=== PATIENT | male | born 1940 | race Caucasian/White ===

== ENCOUNTER 2020-05-28 14:48 | Outpatient (CLI) | payer MEDICARE, SELFPAY | END 2020-05-28 14:49 | disposition home or self-care (01) | PROVIDERS: PCP Family Medicine; Visit Provider Specialist | DX: L08.89 Other specified local infections of the skin and subcutaneous tissue (principal); L30.9 Dermatitis, unspecified | CPT/HCPCS: 88305; 88342 ==

== ENCOUNTER 2020-12-06 13:58 | Outpatient (CLI) | payer MEDICARE, SELFPAY | END 2020-12-06 13:59 | disposition home or self-care (01) | LOC: CHSLAB 14:04 | PROVIDERS: Visit Provider Specialist | DX: D22.5 Melanocytic nevi of trunk (principal) | CPT/HCPCS: 88305; 88342 ==

== ENCOUNTER 2020-12-15 12:19 | Inpatient (IN) | payer MEDICARE, SELFPAY ==
[2020-12-15] VITALS (14 sets, daily range): BP systolic 85–151; BP diastolic 56–89; PULSE 56–118; RESP 14–20; TEMP 36.4–36.8; O2SAT 92–100; BMI 30.2
--- NOTE | 2020-12-15 12:28 | ECG_ITS ---
Measurements Intervals [place] Rate: 114 P: 55 CA: 124 QRS: 34 QRSD: 100 T: -12 QT: 321 QTc: 443 Interpretive Statements SINUS TACHYCARDIA POSSIBLE LEFT ATRIAL ENLARGEMENT EARLY PRECORDIAL R/S TRANSITION INFERIOR ST ELEVATION MYOCARDIAL INFARCT- ACUTE BASELINE WANDER- I, II ABNORMAL ECG Electronically Signed On 12-15-2020 14:18:43 COMMAND AND CONTROL OFFICER by Lavell Bush D.O.
[2020-12-15] MEDS: ASPIRIN 81 MG CHEWABLE TABLET 324 MG PO (12:38)
[2020-12-15 12:46] LABS: Basophils Percent Auto 0.3 % (0.2-1.2); Hematocrit 43.8 % (42.0-52.0); Hemoglobin 14.8 g/dL (14.0-18.0); Immature Granulocyte Absolute 0.03 K/mm3 (0.00-0.031); Immature Granulocyte Percent A 0.2 % (0-0.5); Lymphocytes Absolute Auto 0.94 K/mm3 (0.9-3.2); Lymphocytes Percent Auto 7.8 % (18.3-44.2); Mean Corpuscular HGB Conc 33.8 g/dl (32-36); Mean Corpuscular Hemoglobin 31.7 pg (26-34); Mean Corpuscular Volume 93.8 fl (80-100); Mean Platelet Volume 9.6 fl (7.4-10.4); Monocytes Absolute Auto 0.7 K/mm3 (0.1-0.6); Monocytes Percent Auto 5.7 % (2.6-8.5); Neutrophils Absolute Auto 10.4 K/mm3 (1.3-6.7); Platelet Count Result 252 k/mm3 (150-375); Red Blood Count 4.67 M/mm3 (4.6-6.20); White Blood Count 12.1 K/mm3 (4.5-10.0)
--- NOTE | 2020-12-15 12:50 | PC.NURSE ---
MANAGER MANUFACTURING IN ROOM PAIN RATED AT 4
[2020-12-15 12:56] LABS: INR 0.9; Prothrombin Time 12.5 Seconds (11.1-14.7)
[2020-12-15 12:57] LABS: Partial Thromboplastin Time 27.3 SECONDS (22.3-36.8)
--- NOTE | 2020-12-15 12:59 | ED.CHESTPAIN ---
HPI - Chest Pain General Chief Complaint: Chest Pain Stated Complaint: chest pain Time Seen by Provider: 12/15/20 12:27 Source: patient Mode of arrival: ambulatory Limitations: no limitations History of Present Illness HPI narrative: Patient is a 80 year old male who presents for evaluation of midsternal chest pain. He developed pain on Wednesday. He states he thought his pain was due to indigestion and gas. He tooks tums at that time and his pain resolved. He continued to have this pain intermittently but he states it would resolve after gas relieved or he took tums. He states he developed pain again 1 am this morning, but he has been unable to get his pain to resolve. He has associated bilateral arm pain and nausea. He denies sob, or diaphoresis. He rates his pain 4/10 at this time. He denies history of heart disease or exertional chest pain or shortness of breath. complaint: chest pain Onset (ago): day(s) Timing of current episode: episodic Onset: during rest Quality: dull Relieving factors: antacids Treatment prior to arrival: none Related Data Home Medications Medication Instructions Recorded Confirmed aspirin 81 mg tablet,delayed 81 mg PO DAILY 09/02/20 12/15/20 release clotrimazole [Clotrimazole 1 applic TOPICAL BID 12/15/20 12/15/20 Anti-Fungal] mupirocin 1 applic TOPICAL BID 12/15/20 12/15/20 sildenafil 100 mg PO PRN 12/15/20 12/15/20 Allergies Allergy/AdvReac Type Severity Reaction Status Date / Time Penicillins Allergy Unknown Unknown Verified 12/15/20 12:34 Review of Systems Review of Systems: All systems reviewed & are unremarkable except as noted in HPI and below Constitutional: Constitutional: Denies chills and Denies fever(s) Cardiovascular: Cardiovascular: Reports chest pain and Reports radiating jaw, neck or arm pain Respiratory: Respiratory: Denies cough and Denies dyspnea Gastrointestinal: Gastrointestinal: Denies abdominal pain and Reports nausea PMFSH Past Medical History Medical History Abnormal fasting glucose BMI 33.0-33.9,adult Candidiasis Idiopathic chronic gout (~11/08/13) Male erectile dysfunction, unspecified Mixed hyperlipidemia Nocturia Renal stone Seasonal allergic rhinitis White coat syndrome without hypertension Family History Family History Grandparent Diabetes mellitus, Onset Age: 65 Mother Cerebrovascular accident, Onset Age: 80 Father Family history of congestive heart failure, Onset Age: 79 Social History Social History Smoking status: Former smoker Alcohol intake: former Substance use: never Substance use type: does not use Gender identity (if verbalized by the patient): Male Spiritual care concerns: No Exam Const: General: no acute distress and alert Orientation/consciousness: patient oriented x3 Eyes: EOM: EOMs intact bilaterally Chest: Chest palpation & inspection: normal inspection of the chest Resp: Effort & Inspection: normal respiratory effort and no retractions Auscultation: clear to auscultation bilaterally Cardio: Rate: tachycardic Rhythm: regular rhythm Heart sounds: no murmurs GI: GI Palp: Yes Soft to palpation, No Tenderness to palpation present (GI) and No Guarding due to palpation present (GI) Auscultation: normal bowel sounds Skin: General skin exam: normal color Rashes: no rashes Neuro: General: patient oriented x3 and moves all extremities Extrem: General: edema (trace bilateral low leg edema, pitting) Psych: Mental Status: mental status grossly normal Affect: normal affect Course Reevaluation(s) Reevaluation #1: 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 Tapia came to ER to see patient for stemi. Patient was given aspirin 324 mg PO, metoprol and heparin. HR has improved to 80 with bBP 135/82 Date:
[2020-12-15 13:04] LABS: Cholesterol 182 mg/dL (0-200); HDL Direct 65 mg/dL; Triglycerides 82 mg/dL (<150)
[2020-12-15 13:09] LABS: Anion Gap 8 mmol/L (8-16); Blood Urea Nitrogen 12 mg/dL (9-20); Calcium 9.8 mg/dL (8.4-10.2); Carbon Dioxide 30 mmol/L (22-30); Chloride 96 mmol/L (98-107); Estimated CRCL calculation 92 ml/min; Estimated Glomerular Filt Rate > 60; Glucose 126 mg/dL (75-110); Potassium 4.3 mmol/L (3.4-5.0); Sodium 134 mmol/L (137-145)
[2020-12-15 13:15] LABS: LDL Cholesterol Direct 96 mg/dL
--- NOTE | 2020-12-15 13:15 | PC.NURSE ---
Patient noted to still be having chest pain. Verbal order received from Dr. Pickard for zofran 4 mg ivp and morphine 4 mg ivp at this time.
[2020-12-15] MEDS: MORPHINE SULFATE (*CRX) 4 MG/ML INJ (13:19)
[2020-12-15] MEDS: ONDANSETRON INJ 4 MG/2 ML VIAL (13:19)
--- NOTE | 2020-12-15 13:31 | PM.IMHP ---
H&P: HPI History of Present Illness Date/Time: 12/15/20 13:31 Chief Complaint: chest pain Narrative: Rudy Salas is a 80 year old male presented with recurrent episodes of epigastric and chest pain discomfort, moderate in severity, started on Wednesday, on and Off, last night was was worse and persistent all night and radiates to arms, and couuldn't sleep. So called PCP who recommended to visit ER. Review of Systems Review of Systems: All systems reviewed & are unremarkable except as noted in HPI and below PMFSH Past Medical History Medical History (Updated 12/15/20 @ 13:11 by Dunia Pickard MD) Abnormal fasting glucose BMI 33.0-33.9,adult Candidiasis Idiopathic chronic gout (~11/08/13) Male erectile dysfunction, unspecified Mixed hyperlipidemia Nocturia Renal stone Seasonal allergic rhinitis White coat syndrome without hypertension Family History Family History (Updated 08/01/19 @ 09:41 by DOCTOR UNKNOWN) Grandparent Diabetes mellitus, Onset Age: 65 Mother Cerebrovascular accident, Onset Age: 80 Father Family history of congestive heart failure, Onset Age: 79 Social History Social History (Updated 11/19/20 @ 15:01 by Scarlett Rockwell MA) Smoking status: Former smoker Alcohol intake: never Substance use: never Substance use type: does not use Gender identity (if verbalized by the patient): Male Meds Home Medications and Allergies Home Medications Medication Instructions Recorded Confirmed Type aspirin 81 mg tablet,delayed 81 mg PO DAILY 09/02/20 12/15/20 History release Allergies Allergy/AdvReac Type Severity Reaction Status Date / Time Penicillins Allergy Unknown Unknown Verified 12/15/20 12:34 Vital Signs Vital Signs - 24 hr 12/15/20 12:29 12/15/20 12:40 12/15/20 12:47 Temperature 36.7 C Pulse Rate 118 H 111 H 90 Respiratory Rate 20 18 20 Blood Pressure 151/89 H 139/81 140/83 Pulse Oximetry 100 98 100 12/15/20 12:51 12/15/20 13:00 Temperature Pulse Rate 91 83 Respiratory Rate 17 19 Blood Pressure 117/78 138/82 Pulse Oximetry 98 97 Exam Const: General: comfortable and no acute distress Other: Able to lie flat HENMT: General nose exam: Normal nares present and no epistaxis Mouth: Yes moist mucous membranes Eyes: Sclera: sclerae normal Pupils: Equal, round and reactive pupils present Neck: Neck: supple and no JVD Carotids: no bruits Resp: Auscultation: clear to auscultation bilaterally and lung sounds not diminished Other: No chest wall tenderness Cardio: Rate: regular rate Rhythm: regular rhythm Heart sounds: no gallops, no murmurs and no rubs GI: GI Palp: Yes Soft to palpation and No Tenderness to palpation present (GI) Auscultation: normal bowel sounds Skin: General skin exam: normal color, rashes and/or lesions noted and no erythema Other: Warm Neuro: Cranial nerves: Yes Equal, round and reactive pupils present Speech: normal speech Other: No obvious focal deficit or facial asymmetry Extrem: General: no edema Other: Normal capillary refills Intact distal pulses. H&P: Results Labs Labs: Short CBC 12/15/20 Range/Units 12:37 WBC 12.1 H (4.5-10.0) K/mm3 Hgb 14.8 (14.0-18.0) g/dL Hct 43.8 (42.0-52.0) % Plt Count 252 (150-375) k/mm3 BMP 12/15/20 12:37 Sodium 134 L Potassium 4.3 Chloride 96 L Carbon Dioxide 30 BUN 12 Creatinine 0.60 L Glucose 126 H Calcium 9.8 Cardiac Enzymes 12/15/20 Range/Units 12:37 Troponin I 4.670 H* (0.000-0.034) ng/mL ECG Attestation: I personally reviewed and interpreted this ECG as follows: (SR and Inf wall OR) Assessment and Plan Additional Plan INF wall STEMI late pattern but persistent chest pain, liekly started at 1 AM. Plan heparin, ASA, Ticagrlor and primary PCI
--- NOTE | 2020-12-15 14:15 | WPDCARDPROC ---
Cardiac Cath Procedure Note Date of procedure:: 12/15/20 Performing physician:: Tony Tapia MD Assessment and Plan Additional Plan INDICATION: 1. STEMI HISTORY Patient presented with acute sever chest pain, EKG showed INf wall STEMI PROCEDURES 1. Coronary angiogram 2. LHC 3. PCI to RCA acute total occlusion, culpruit lesion of STEMI ACCESS SITE Rt radial artery SEDATION: Moderate sedation started at 13:42 and ended at 14:09, for 17 min using versed 1 mg and fentanyl 50 mcg. Patient was monitored during procedure by me and nurse and was stable through out procedure and at end. - PROCEDURE DETAILS Consent obtained and time out done. Access site prepped and draped in sterile fashion. Moderate sedation given with versed and fentanyl and tolerated well, see nurses note for doses Access obtained with modified Seldinger technique with no difficulty. Coronary angiogram was recorded using TIG catheter in different angels LHC was done with TIG 4 catheter HEMODYNAMIC FINDINGS Aorta: 110/80 LV: 110/17 ANGIOGRAPHIC FINDINGS 1. Left main: normal, free of obstructive disease, gives LAD and LCX 2. LAD: LAD, LAD gives large diagonal and and has mid LAD 50% stenosis. 3. LCX: Lareg vessel that gives one large OM2, LCX and OM2 are free of obstructive disease. 4. RCA: Dominant vessel gives rPDA and rPL. Distal RCA has 100% occlusion distally ay bifurcation with thrombus TIMI0 (culprit for STEMI) PCI DETAILS Pre intervention Lesion: acute total occlusion of RCA culprit lesion of STEMI, class B, MARIELLA 0 Guide catheter: JR4 and GuideLiner used for support Anticoagulation: Heparin to target ACT > 250 sec Antiplatelet therapy: ASA givenin ER Guide wire: Samurai used to cross to distal vessel Balloon dilation was done with Emerge 2.5 * 12 balloon at 10 MICHELLE Stent 2.5 * 9 mm Orsero deployed at lesion extending into proximal PDA at 12 MICHELLE, post stent balloon dilation was done with Quantum NC 3.0 * 8 NC balloon at 14 MICHELLE Post intervention: residual stenosis 0% and MARIELLA 3 flow established COMPLICATION: None Estimated blood loss: 30 ml patient tolerated procedure well, asymptomatic at end of procedure, awake, intact pulses and following commands CONCLUSION Acute total occlusion of distal RCA Culprit lesion of STEMI S/P Primary PCI with one TRACEY Orserio 2.5 *9 mm from distal RCA into proximal PDA RECOMMENDATION DAPT for at least one year
--- NOTE | 2020-12-15 14:25 | ECG_ITS ---
Measurements Intervals [place] Rate: 81 P: 67 IN: 145 QRS: -12 QRSD: 104 T: -36 QT: 392 QTc: 456 Interpretive Statements SINUS RHYTHM EARLY PRECORDIAL R/S TRANSITION INFERIOR INFARCT, PROBABLY RECENT BASELINE ARTIFACT- I, II, III, AVR, AVL,A VF, V1, V3-V6 ABNORMAL ECG Electronically Signed On 12-15-2020 15:54:01 TREE WORKER by Lavell Bush D.O.
--- NOTE | 2020-12-15 15:04 | WPDCNINT ---
Assessment and Plan Assessment and plan (1) ST elevation (STEMI) myocardial infarction: Qualifiers: Involved coronary artery: unspecified coronary artery Qualified Code(s): I21.3 - ST elevation (STEMI) myocardial infarction of unspecified site Code(s): I21.3 - ST elevation (STEMI) myocardial infarction of unspecified site Status: Acute Assessment and Plan: On presentation he had ST elevation in inferior leads and troponin was 4.6 He is now Status post PCI with stent placement to RCA. 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 Pain started redness day for the 1st time after eating dinner, it was 8/10 severe, sharp, radiated to both arms, associated with shortness of breath. He thought it was heartburn and he took medications which relieved the pain after a hour. Since then patient has had multiple episodes of recurrent pain at different times of the day which were intermittent and went away with treatment with antacid or spontaneously. Last night patient again had similar episode while he was walking. Today pain started again and not go way hence he reported to ER. In the ED he was found to be having elevated troponin and ST elevation of his inferior leads. Patient was taken to cardiac cath lab technologist for STEMI and underwent angiogram and PCI to RCA which showed acute total occlusion. Patient now admitted to ICU and states that his pain is totally resolved and he does not have any complaints. His only complaint at this time is in his right arm from keeping it still for the duration of procedure. He denies any other complaint and review of system for other systems was negative. He denies any contact with anyone with COVID-19, he himself was never tested nor had any symptoms suggestive of COVID-19. Patient also denies receiving COVID-19 vaccine at this time Review of Systems Review of Systems: All systems reviewed & are unremarkable except as noted in HPI and below (HPI) [facility] Past Medical History Medical History Abnormal fasting glucose BMI 33.0-33.9,adult Candidiasis Idiopathic chronic gout (~11/08/13) Male erectile dysfunction, unspecified Mixed hyperlipidemia Nocturia Renal stone Seasonal allergic rhinitis White coat syndrome without hypertension Family History Family History Grandparent Diabetes mellitus, Onset Age: 65 Mother Cerebrovascular accident, Onset Age: 80 Father Family history of congestive heart failure, Onset Age: 79 Social History Social History Smoking status: Former smoker Alcohol intake: never Substance use: never Substance use type: does not use Gender identity (if verbalized by the patient): Male Meds Home Medications and Allergies Home Medications Medication Instructions Recorded Confirmed Type aspirin 81 mg tablet,delayed 81 mg PO DAILY 09/02/20 12/15/20 History release Allergies Allergy/AdvReac Type Severity Reaction Status Date / Time Penicillins Allergy Unknown Unknown Verified 12/15/20 12:34 Vital Signs Vital Signs - 24 hr 12/15/20 12:29 12/15/20 12:40 12/15/20 12:47 Temperature 36.7 C Pulse Rate 118 H 111 H 90 Respiratory Rate 20 18 20 Blood Pressure 151/89 H 139/81 140/83 Pulse Oximetry 100 98 100 12/15/20 12:51 12/15/20 13:00 Temperature Pulse Rate 91 83 Respiratory Rate 17 19 Blood Pressure 117/78 138/82 Pulse Oximetry 98 97 Exam Narrative: Exam Narra
--- NOTE | 2020-12-15 15:43 | PC.NURSE ---
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 Pt arrives A&Ox4 on RA, no bleeding to TR band. Will monitor.
[2020-12-15] MEDS: SODIUM CHLORIDE 0.9% IV 1,000 ML 125 ML IV CONT (19:07)
[2020-12-15] MEDS: METOPROLOL TARTRATE 12.5 MG TABLET PO (20:37)
[2020-12-15 20:57] LABS: Troponin I > 80.000 ng/mL (0.000-0.034)
[2020-12-16] VITALS (17 sets, daily range): BP systolic 93–156; BP diastolic 53–84; PULSE 58–144; RESP 16–23; TEMP 36.3–36.8; O2SAT 92–100
--- NOTE | 2020-12-16 | ECHO_ITS ---
Patient Info Name: Rudy Salas Age: 80 years : 1940 Gender: Male Ht: 68 in Wt: 196 lbs BSA: 2.09 m2 HR: 88 bpm BP: 111 / 53 mmHg Heart Rhythm: Sinus Rhythm Technical Quality: Good Exam Date: 12/16/2020 9:58 AM Exam Location: [facility] Patient Status: Inpatient Admit Date: 12/15/2020 Staff Ordering Physician: Tony Tapia MD Process Stripper: Edil Jackson RDCS Attending Provider: Tony Tapia MD Exam Type: CA echo dop color flow w con Study Info Indications I21.11 - ST elevation (STEMI) myocardial infarction involving right coronary artery Complete two-dimensional, color flow and Doppler transthoracic echocardiogram is performed with contrast to opacify the left ventricle and to improve the deliniation of the left ventricle endocardial borders. Contrast/Agitated Saline Contrast/Ag. Saline: Definity Amount: 2.00 ml Administered By: Jean Pierre Newman RN Existing IV Access: Yes History/Risk Factors STEMI w/ stent to RCA. Summary 1. Left ventricular chamber dimension is normal. 2. Left ventricular systolic function is normal, estimated at 50-55%. 3. Contrast injected to improve visualization. 4. The inferior segment is severely hypodynamic but not akinetic. 5. There is mild aortic valve sclerosis. Left Ventricle Left ventricular chamber dimension is normal. Left ventricular systolic function is normal, estimated at 50-55%. The left ventricular diastolic function is grade I diastolic dysfunction. Contrast injected to improve visualization. The inferior segment is severely hypodynamic but not akinetic. Right Ventricle Right ventricular chamber dimension is normal. Left Atria Left atrial chamber dimension is normal. Right Atria Right atrial chamber dimension is normal. Aortic Valve The aortic valve is trileaflet. There is mild aortic valve sclerosis. Pulmonic Valve The pulmonic valve is not well visualized. Mitral Valve The mitral valve has normal leaflets. Tricuspid Valve The tricuspid valve leaflets are normal. Pericardium/Pleural The pericardium appears normal. Aorta The aortic root size at the sinus of Valsalva is normal. Left Ventricular Outflow Tract Name Value Normal LVOT 2D LVOT Diameter 1.87 cm LVOT Doppler LVOT Peak Gradient 5 mmHg LVOT Mean Gradient 3 mmHg LVOT VTI 22.73 cm LVOT VTI/AV VTI Ratio 0.75 LVOT Stroke Volume 62.09 ml LVOT CO 4.93 l/min LVOT CI 2.36 L/min/m2 Mitral Valve Name Value Normal MV Doppler MV Decel [place] 242.87 cm/s2 MV PHT 0 s
[2020-12-16 05:26] LABS: Hematocrit 41.3 % (42.0-52.0); Mean Corpuscular HGB Conc 33.9 g/dl (32-36); Mean Corpuscular Hemoglobin 32.3 pg (26-34); Mean Corpuscular Volume 95.4 fl (80-100); Mean Platelet Volume 9.7 fl (7.4-10.4); Platelet Count Result 212 k/mm3 (150-375); Red Blood Count 4.33 M/mm3 (4.6-6.20); Red Cell Distribution Width 13.2 % (11.5-14.5); White Blood Count 7.5 K/mm3 (4.5-10.0)
[2020-12-16 06:53] LABS: Alanine Aminotransferase 54 U/L (4-50); Albumin Level 3.5 g/dL (3.5-5.1); Alkaline Phosphatase 61 U/L (38-126); Anion Gap 1 mmol/L (8-16); Aspartate Amino Transferase 267 U/L (17-59); Bilirubin,Total 0.9 mg/dL (0.2-1.3); Blood Urea Nitrogen 10 mg/dL (9-20); Calcium 8.6 mg/dL (8.4-10.2); Carbon Dioxide 33 mmol/L (22-30); Chloride 104 mmol/L (98-107); Estimated CRCL calculation 71 ml/min; Estimated Glomerular Filt Rate > 60; Glucose 100 mg/dL (75-110); Magnesium 1.8 mg/dL (1.6-2.3); Sodium 138 mmol/L (137-145)
[2020-12-16] MEDS: TICAGRELOR 90 MG TABLET PO ×2 (08:05→20:13)
[2020-12-16] MEDS: METOPROLOL TARTRATE 12.5 MG TABLET PO ×2 (08:06→20:13)
[2020-12-16] MEDS: ASPIRIN 81 MG ENTERIC TABLET PO (08:06)
[2020-12-16] MEDS: ATORVASTATIN 40 MG TABLET 80 MG PO (08:06)
--- NOTE | 2020-12-16 08:20 | WPDINTPN ---
Progress Note: A&P Assessment and Plan (1) ST elevation (STEMI) myocardial infarction: Onset Date: 12/15/20 Qualifiers: Involved coronary artery: unspecified coronary artery Qualified Code(s): I21.3 - ST elevation (STEMI) myocardial infarction of unspecified site Code(s): I21.3 - ST elevation (STEMI) myocardial infarction of unspecified site Status: Acute Assessment and Plan: On presentation he had ST elevation in inferior leads and troponin was 4.6 He is now Status post PCI with stent placement to RCA. Patient chest pain-free and hemodynamically stable Continue ICU telemetry monitoring Continue Aspirin, Brilinta, metoprolol, Lipitor Check echo which is pending for today Labs done today reviewed SCDs for DVT prophylaxis, increase activity, transfer out of ICU, incentive spirometry Patient is full code (2) Elevated transaminase level: Code(s): R74.01 - Elevation of levels of liver transaminase levels Status: Acute Assessment and Plan: Mildly elevated AST and ALT level. Can be secondary to [place]. Patient is on statin. Recheck tomorrow morning. If continues to increase may need holding statin and further workup Subjective Date/time seen: 12/16/20 0700 Patient slept well overnight with no new complaints. No chest pain shortness of breath. Pain in his right arm has resolved. Patient denies fever, cough, nausea vomiting, abdominal pain, diarrhea, headache or constipation. No rhythmic has overnight and hemodynamically stable Review of Systems Review of Systems: All systems reviewed & are unremarkable except as noted in HPI and below (HPI) Exam Narrative: Exam Narrative: General: Pt is alert awake and in NAD Lungs/Chest: Trachea central Clear BS B/L, No crackles or wheezing. Cardiac: RRR. Normal S1 S2. No murmurs Circulation: Pedal pulses are intact and symmetrical. Right radial site examined. No abnormality detected.good capillary refill in fingers Abdomen: Normal bowel sounds.. Soft. NT. ND. Extremities: No clubbing, cyanosis or edema. Warm, varicose veins : Moser in place Neurologic: Follows commands. Moves all 4 extremities PERRL alert oriented x3 Skin: No Rash Objective Data Vital Signs Vital Signs: Vital Signs - 24 hr 12/15/20 12:29 12/15/20 12:40 12/15/20 12:47 Temperature 36.7 C Pulse Rate 118 H 111 H 90 Respiratory Rate 20 18 20 Blood Pressure 151/89 H 139/81 140/83 Pulse Oximetry 100 98 100 12/15/20 12:51 12/15/20 13:00 12/15/20 14:55 Temperature Pulse Rate 91 83 74 Respiratory Rate 17 19 17 Blood Pressure 117/78 138/82 114/70 Pulse Oximetry 98 97 96 12/15/20 15:10 12/15/20 15:25 12/15/20 15:43 Temperature 36.6 C Pulse Rate 75 71 78 Respiratory Rate 14 14 18 Blood Pressure 117/86 108/83 Pulse Oximetry 96 99 96 12/15/20 16:00 12/15/20 18:00 12/15/20 20:00 Temperature 36.8 C 36.4 C Pulse Rate 71 62 96 Respiratory Rate 17 17 20 Blood Pressure 106/60 104/56 L 100/63 Pulse Oximetry 100 97 95 12/15/20 20:37 12/15/20 22:00 12/16/20 00:00 Temperature 36.3 C L Pulse Rate 76 56 L 63 Respiratory Rate 17 16 Blood Pressure 85/61 L 93/60 L Pulse Oximetry 92 94 12/16/20 02:00 12/16/20 04:00 12/16/20 06:00 Temperature 36.6 C Pulse Rate 59 L 92 58 L Respiratory Rate 22 H 20 20 Blood Pressure 101/57 L 105/65 106/71 Pulse Oximetry 94 95 94 12/16/20 08:00 12/16/20 08:06 Temperature 36.8 C Pulse Rate 63 74 Respiratory Rate 18 Blood Pressure 111/53 L Pulse Oximetry 94 Intake/Output Intake/Output: Intake & Output 12/13/20 12/14/20 12/15/20 12/16/20 23:59 23:59 23:59 23:59 Intake Total 240 1480 Output Total 100 1760 Balance 140 -280 Meds/Results Medications: Active Medications Generic Name Dose Route Start Last Admin Trade Name Jean Claude PRN Reason Stop Dose Admin Aspirin 81 mg 12/16/20 09:00 12/16/20 08:06 Aspirin 81 Mg Enteric Tablet PO 81 mg DAILY RUKHSANA Administ
--- NOTE | 2020-12-16 13:16 | PM.PNCARD ---
Progress Note: A&P Additional Plan 80-year-old man with: Coronary artery disease presenting yesterday with acute inferior wall myocardial infarction patient underwent angiographically successful distal RCA intervention and is doing well. Troponin rise was quite high and told the patient for this reason it would be imprudent to consider discharge today. He can move out of the ICU if he has no difficulties discharge tomorrow would probably be more reasonable. He had a variety of questions about activity restrictions that would be recommended following discharge we spoke about all of that in large amount of detail Yrn Skaggs MD [facility] Subjective Date/time seen: 12/16/20 13:16 Interval history: Follow-up visit in this 80-year-old man with: Coronary artery disease with acute inferior wall infarction treated emergently with PCI to the distal right coronary artery. There was no significant left coronary lesion identified. He is asymptomatic today and feels well. Patient is somewhat despondent that despite exercising eating healthy and adhering to heart healthy guidelines he still had a myocardial infarction. Exam Const: General: comfortable and no acute distress HENMT: Mouth: Yes moist mucous membranes Eyes: Sclera: sclerae normal Pupils: Equal, round and reactive pupils present Neck: Neck: supple and no JVD Resp: Effort & Inspection: normal respiratory effort Auscultation: clear to auscultation bilaterally Other: No rales no rhonchi no wheezing Cardio: Rate: regular rate Rhythm: regular rhythm Other: PMI nondisplaced no cardiac murmur audible GI: GI Palp: Yes Soft to palpation Auscultation: normal bowel sounds Skin: General skin exam: normal color Neuro: Cognition (Neuro): normal cognition Extrem: General: normal to inspection Other: Radial artery puncture site looks unremarkable Objective Data Vital Signs Vital Signs: Vital Signs - 24 hr 12/15/20 14:55 12/15/20 15:10 12/15/20 15:25 Temperature Pulse Rate 74 75 71 Respiratory Rate 17 14 14 Blood Pressure 114/70 117/86 108/83 Pulse Oximetry 96 96 99 12/15/20 15:43 12/15/20 16:00 12/15/20 18:00 Temperature 36.6 C 36.8 C Pulse Rate 78 71 62 Respiratory Rate 18 17 17 Blood Pressure 106/60 104/56 L Pulse Oximetry 96 100 97 12/15/20 20:00 12/15/20 20:37 12/15/20 22:00 Temperature 36.4 C Pulse Rate 96 76 56 L Respiratory Rate 20 17 Blood Pressure 100/63 85/61 L Pulse Oximetry 95 92 12/16/20 00:00 12/16/20 02:00 12/16/20 04:00 Temperature 36.3 C L 36.6 C Pulse Rate 63 59 L 92 Respiratory Rate 16 22 H 20 Blood Pressure 93/60 L 101/57 L 105/65 Pulse Oximetry 94 94 95 12/16/20 06:00 12/16/20 08:00 12/16/20 08:06 Temperature 36.8 C Pulse Rate 58 L 74 74 Respiratory Rate 20 18 Blood Pressure 106/71 111/53 L Pulse Oximetry 94 94 12/16/20 10:00 12/16/20 12:00 Temperature 36.6 C Pulse Rate 81 86 Respiratory Rate 23 H 20 Blood Pressure 126/77 130/82 Pulse Oximetry 100 92 Intake/Output Intake/Output: Intake & Output 12/13/20 12/14/20 12/15/20 12/16/20 23:59 23:59 23:59 23:59 Intake Total 240 1960 Output Total 100 1760 Balance 140 200 Meds/Results Medications: Active Medications Generic Name Dose Route Start Last Admin Trade Name Freq PRN Reason Stop Dose Admin Aspirin 81 mg 12/16/20 09:00 12/16/20 08:06 Aspirin 81 Mg Enteric Tablet PO 81 mg DAILY RUKHSANA Administration Atorvastatin Calcium 80 mg 12/16/20 09:00 12/16/20 08:06 Atorvastatin 40 Mg Tablet PO 80 mg DAILY RUKHSANA Administration Metoprolol Tartrate 12.5 mg 12/15/20 21:00 12/16/20 08:06 Metoprolol Tartrate 12.5 Mg Tablet PO 12.5 mg Q12HR RUKHSANA Administration Ticagrelor 90 mg 12/16/20 09:00 12/16/20 08:05 Ticagrelor 90 Mg Tablet PO 90 mg Q12HR RUKHSANA Administration Labs Labs: Laboratory Results - last 24 hr 12/15/20 12/15/20 12/15/20 12:37 12:40 17:13 WBC RBC Hgb
--- NOTE | 2020-12-16 15:34 | PC.NURSE ---
This patient, Gene Kelly Salas, was transferred to [ 200] on 12/16/20 at 1534. Personal belongings sent with patient. Report given to [MARCIA Hays @ [phone] ]. Appropriate documentation sent with patient.
[2020-12-17] VITALS (9 sets, daily range): BP systolic 103–137; BP diastolic 73–74; PULSE 78–113; RESP 18; TEMP 36.6–37.1; O2SAT 96–98
[2020-12-17 05:18] LABS: Hematocrit 48.7 % (42.0-52.0); Hemoglobin 16.1 g/dL (14.0-18.0); Mean Corpuscular HGB Conc 33.1 g/dl (32-36); Mean Corpuscular Hemoglobin 31.7 pg (26-34); Mean Corpuscular Volume 95.9 fl (80-100); Mean Platelet Volume 9.9 fl (7.4-10.4); Platelet Count Result 227 k/mm3 (150-375); Red Blood Count 5.08 M/mm3 (4.6-6.20); Red Cell Distribution Width 13.1 % (11.5-14.5); White Blood Count 8.7 K/mm3 (4.5-10.0)
[2020-12-17 05:28] LABS: Alanine Aminotransferase 57 U/L (4-50); Albumin Level 4.2 g/dL (3.5-5.1); Alkaline Phosphatase 72 U/L (38-126); Anion Gap 5 mmol/L (8-16); Aspartate Amino Transferase 175 U/L (17-59); Bilirubin,Total 1.1 mg/dL (0.2-1.3); Blood Urea Nitrogen 12 mg/dL (9-20); Calcium 9.3 mg/dL (8.4-10.2); Carbon Dioxide 31 mmol/L (22-30); Chloride 103 mmol/L (98-107); Estimated CRCL calculation 71 ml/min; Estimated Glomerular Filt Rate > 60; Glucose 102 mg/dL (75-110); Magnesium 1.9 mg/dL (1.6-2.3); Potassium 3.6 mmol/L (3.4-5.0); Sodium 139 mmol/L (137-145)
[2020-12-17] MEDS: TICAGRELOR 90 MG TABLET PO (08:15)
[2020-12-17] MEDS: ASPIRIN 81 MG ENTERIC TABLET PO (08:15)
[2020-12-17] MEDS: METOPROLOL TARTRATE 12.5 MG TABLET PO (08:15)
[2020-12-17] MEDS: ATORVASTATIN 40 MG TABLET 80 MG PO (08:15)
--- NOTE | 2020-12-17 10:43 | PM.DS ---
DS: Admitting Diagnosis Admitting Diagnosis Admitting Diagnosis: Inferior STEMI DS: Discharge Diagnosis Discharge Diagnosis (1) ST elevation (STEMI) myocardial infarction: Onset Date: 12/15/20 Qualifiers: Involved coronary artery: unspecified coronary artery Qualified Code(s): I21.3 - ST elevation (STEMI) myocardial infarction of unspecified site Code(s): I21.3 - ST elevation (STEMI) myocardial infarction of unspecified site Status: Acute Assessment and Plan: Patient was admitted on 12/15/2020 late presentation of an inferior STEMI, with inferolateral ST elevation. His initial troponin was 67. He is taking emergently to the casting [facility] lab[facility] by Dr. Tapia. The distal right coronary artery was occluded and a drug-eluting 2.5 x 9 mm Orsero stent was placed with good results. He also had a 50% mid Left anterior descending stenosis. Echo showed EF inferior hypokinesis (somewhat tele difficult study). He has been up and ambulating with no chest discomfort or shortness of breath. He has been a little tachycardic with activity with heart rates running 110-115 with activity, normal at rest. He had a few rales in the lower lobes and trace to mild lower pretibial edema on discharge. I am concerned that some of this may represent significant left ventricular dysfunction and early CHF but the patient's EF was good by echo. ProBNP is 200, not particularly elevated. Patient was counseled about signs and symptoms of CHF, daily weights etc.. Extensive counseling was supplied; the patient had multiple and sometimes repeated questions, some of which had been already answered by Dr. Skaggs the day prior, which were again answered to the patient's satisfaction. He was counseled re: diet (heart healthy, no added salt), red meat (reduce consumption as much as feasible), what to eat when traveling (be resourceful and find heart-healthy meals instead of fast food), activity, follow-up etc. He was upset that even though he had taken good care of himself he still had an IA and I explained that as we age, things can happen even to people who are taking care of themselves. (2) Mixed hyperlipidemia: Code(s): E78.2 - Mixed hyperlipidemia Status: Acute Assessment and Plan: LDL cholesterol is mildly elevated, in the 90s. I recommended statin initiation not just for cholesterol but to reduce the risk of recurrent IA, stroke, and . Patient questions about his risk for diabetes (small risk) and dementia (not a risk) with statin therapy. (3) Ischemic cardiomyopathy: Code(s): I25.5 - Ischemic cardiomyopathy Status: Acute Assessment and Plan: Mild LV dysfunction by echo, EF 50-55%. (4) Elevated transaminase level: Code(s): R74.01 - Elevation of levels of liver transaminase levels Status: Acute Assessment and Plan: Elevated LFTs were noted, presumably a result of the IA and not hepatic problems. DS: Summary Hospital Course Hospital Course: TRACEY to distal RCA, EF 50-55%, uncomplicated course as described above. Time Spent with Patient Time attestation: Total time spent providing and/or coordinating discharge services: 70 minutes Exam Narrative: Exam Narrative: Loquacious older gentleman, no distress Const: General: comfortable and no acute distress Limitations: no limitations HENMT: Mouth: Yes moist mucous membranes Eyes: EOM: EOMs intact bilaterally Neck: Neck: supple and no JVD Thyroid: thyroid normal Resp: Effort & Inspection: normal respiratory effort Auscultation: rales (Rales in both bases) Cardio: Rate: regular rate and tachycardic Rhythm: regular rhythm Heart sounds: no gallops and Murmur heart sound present (1/6 BENJA lower sternal border) GI: Inspection: non-distended GI Palp: Yes Soft to palpation Skin:
[2020-12-17 11:28] LABS: NT Pro B Type Natriuretic Pept 2130 PG/ML (5-100)
== END 2020-12-17 14:41 | disposition home or self-care (01) | DRG 247 ==
LOC: ANHED 13:11 → ANHICU 14:47 → ANHIMU 12-16 15:58
PROVIDERS: Internal Medicine; Admitting Provider Internal Medicine Interventional Cardiology; Emergency Provider General Practice; PCP Family Medicine; Visit Provider Internal Medicine Cardiovascular Disease
PROC: 4A023N7 Measurement of Cardiac Sampling and Pressure, Left Heart, Percutaneous Approach (ICD-10-PCS; CPT 93452; principal; 2020-12-15 13:00)
PROC: 027034Z Dilation of Coronary Artery, One Artery with Drug-eluting Intraluminal Device, Percutaneous Approach (ICD-10-PCS; 2020-12-15 13:00)
DX: I21.11 ST elevation (STEMI) myocardial infarction involving right coronary artery (principal); E78.2 Mixed hyperlipidemia; I25.5 Ischemic cardiomyopathy; R74.01 Elevation of levels of liver transaminase levels; Z87.891 Personal history of nicotine dependence
CPT/HCPCS: 36415; 80048; 80053; 80061; 83735; 83880; 84484; 85025; 85027; 85610; 85730; 86850; 86900; 86901; 93005; 93458; 96374; 96375; 99291; A9270; C1725; C1769; C1874; C1887; C1894; C8929; C9606; J1644; J2250; J2270; J2405; J3010; J7030; J7040; Q9957

== ENCOUNTER 2021-03-27 13:30 | Outpatient (RCR) | payer MEDICARE, SELFPAY | END 2021-03-27 19:30 | disposition home or self-care (01) | LOC: ANHCPREHAB 13:30 | PROVIDERS: PCP Family Medicine; Visit Provider Internal Medicine Interventional Cardiology | DX: Z95.5 Presence of coronary angioplasty implant and graft (principal); I25.2 Old myocardial infarction; I25.10 Atherosclerotic heart disease of native coronary artery without angina pectoris | CPT/HCPCS: 93798 ==

== ENCOUNTER 2023-04-07 09:53 | Emergency (ER) | payer MEDICARE, SELFPAY ==
--- NOTE | ~2023-04-07 | US_ITS ---
EXAMINATION: US venous doppler LE RT DATE: 04/07/2023 10:47 INDICATION: Right lower limb pain and swelling. TECHNIQUE: Grayscale ultrasound images without and with compression and Doppler ultrasound images of the right lower extremity veins were obtained. COMPARISON: None. FINDINGS: The visualized portions of right common femoral vein, profunda (deep) femoral vein, femoral vein, pop liteal vein, peroneal veins, posterior tibial veins, and greater saphenous vein outflow are patent. IMPRESSION: 1. No deep venous thrombosis. Reviewed, dictated and finalized at location A.
[2023-04-07 09:56] VITALS: BP 111/76; PULSE 92; RESP 18; TEMP 36.7; O2SAT 98
[2023-04-07 10:15] LABS: Basophils Percent Auto 0.8 % (0.2-1.2); Eosinophils Absolute Auto 0.2 K/mm3 (0-0.3); Hematocrit 39.3 % (42.0-52.0); Hemoglobin 12.8 g/dL (14.0-18.0); Lymphocytes Absolute Auto 0.88 K/mm3 (0.9-3.2); Lymphocytes Percent Auto 16.5 % (18.3-44.2); Mean Corpuscular HGB Conc 32.6 g/dl (32-36); Mean Corpuscular Hemoglobin 31.6 pg (26-34); Mean Platelet Volume 9.6 fl (7.4-10.4); Monocytes Absolute Auto 0.5 K/mm3 (0.1-0.6); Monocytes Percent Auto 9.6 % (2.6-8.5); Neutrophils Absolute Auto 3.7 K/mm3 (1.3-6.7); Neutrophils Percent Auto 70.1 % (45.5-73.1); Platelet Count Result 210 k/mm3 (150-375); Red Blood Count 4.05 M/mm3 (4.6-6.20); Red Cell Distribution Width 13.2 % (11.5-14.5); White Blood Count 5.3 K/mm3 (4.5-10.0)
[2023-04-07 10:26] LABS: INR 0.9; Partial Thromboplastin Time 31.7 SECONDS (22.3-36.8); Prothrombin Time 12.7 Seconds (11.1-14.7)
[2023-04-07 10:30] LABS: Anion Gap 9 mmol/L (8-16); Blood Urea Nitrogen 17 mg/dL (9-20); Calcium 9.1 mg/dL (8.4-10.2); Carbon Dioxide 28 mmol/L (22-30); Chloride 98 mmol/L (98-107); Estimated Glomerular Filt Rate > 60; Glucose 120 mg/dL (65-110); Potassium 4.5 mmol/L (3.4-5.0); Sodium 135 mmol/L (137-145)
--- NOTE | 2023-04-07 13:04 | ED.EXTPRO ---
HPI - Extremity Problem General Chief complaint: Extremity Problem,Nontraumatic Stated complaint: right lower leg swelling Time Seen by Provider: 04/07/23 11:57 History of Present Illness HPI Narrative: 82-year-old male presented the ED for evaluation of lower extremity swelling on the right. Patient states he had been out working in the yard during the day and started developing some right lower extremity redness and swelling. Patient reports he did feel fatigued at night. Patient denies any prior history of PE or DVT. Patient denies any cough colds or fevers. Patient does have multiple calluses on his feet. Related Data Home Medications Medication Instructions Recorded Confirmed aspirin 81 mg tablet,delayed 81 mg PO DAILY 09/02/20 11/24/22 release (Adult Low Dose Aspirin) atorvastatin 80 mg tablet 80 mg PO DAILY 11/25/21 11/24/22 fluticasone propionate 50 1 spray intranasal BID 11/24/22 11/24/22 mcg/actuation nasal spray,suspension loratadine 10 mg tablet (Claritin) 10 mg PO DAILY PRN allergic 11/24/22 11/24/22 symptoms Allergies Allergy/AdvReac Type Severity Reaction Status Date / Time Penicillins Allergy Unknown Unknown Verified 04/07/23 11:12 Review of Systems Review of Systems: All systems reviewed & are unremarkable except as noted in HPI and below PMFSH Past Medical History Medical History (Updated 04/07/23 @ 13:10 by Kristofer Cervantes MD) Abnormal fasting glucose fasting glucose 90 with hemoglobin A1c 6.0 on 05/12/2022. Glucose 101 with hemoglobin A1c 6.1 on 11/27/2022. BMI 26.0-26.9,adult BMI 33.0-33.9,adult Candidiasis Idiopathic chronic gout (~11/08/13) Uric acid 7.0 on 05/12/2022. Treated with diet. Ischemic cardiomyopathy Male erectile dysfunction, unspecified Mixed hyperlipidemia LDL goal less than 70. Total cholesterol 117, triglycerides 50, HDL 64, LDL 41 on 05/12/2022. Cholesterol 126, HDL 66, triglycerides 46, LDL 47 on 11/27/2022. Nocturia Overweight (BMI 25.0-29.9) Renal stone Seasonal allergic rhinitis White coat syndrome without hypertension Family History Family History (Updated 01/06/21 @ 12:01 by Valerie Thrasher RN) Grandparent Diabetes mellitus, Onset Age: 65 Mother Cerebrovascular accident, Onset Age: 80 Father Family history of congestive heart failure, Onset Age: 79 Heart disease Heart attack Cerebrovascular accident Social History Social History (Updated 11/24/22 @ 13:30 by Scarlett Rockwell MA) Smoking packs per day: 1 Smoking cigarettes per day: 20.0 Years smoked: 32 Smoking pack-years: 32.00 Smoking status: Former smoker Tobacco type: cigarettes Alcohol intake: current Alcohol use details: on occasion Substance use: never Substance use type: does not use Lack of Transportation: No Lack of Food: Never True Current Housing: I Have Housing Concerned About Future Housing: No Difficulty Paying Gas/Electric Bills: No Difficulty Paying for Meds: No Currently Unemployed: No Education: Bachelor's Degree Difficulty w/ Childcare or Family Care: No Gender identity (if verbalized by the patient): Male Spiritual care concerns: No Exam Narrative: APPEARANCE: Well appearing, no pain, no distress, well-nourished. HEAD: normocephalic, atraumatic. EYES: PERRLA/EOMI, conjunctivae clear. NECK: Supple. No adenopathy, no masses. RESPIRATORY: Airway patent, respirations nonlabored. Clear to auscultation bilaterally, no rales, rhonchi, wheezing. CARDIOVASCULAR: Regular rate and rhythm without murmurs rubs or gallops. ABDOMINAL: Soft, nontender, nondistended, normal bowel sounds MUSCULOSKELETAL: Right lower extremity swelling, circumferential erythema and posterior calf tenderness. Neurovascular intact NEURO: Alert. Cranial nerves II through XII intact. Grossly intact SKIN: Warm, dry. Normal Color Course Course Emergency Course: 82-year-old male presenting to the em
[2023-04-07] MEDS: CLINDAMYCIN HCL 150 MG CAP 300 MG PO (13:23)
== END 2023-04-07 13:31 | disposition home or self-care (01) ==
PROVIDERS: Emergency Medicine; Emergency Provider Emergency Medicine; PCP Family Medicine
DX: L03.115 Cellulitis of right lower limb (principal); I25.5 Ischemic cardiomyopathy; E78.2 Mixed hyperlipidemia; E66.3 Overweight; Z68.25 Body mass index [BMI] 25.0-25.9, adult; Z87.891 Personal history of nicotine dependence; Z87.442 Personal history of urinary calculi; Z79.82 Long term (current) use of aspirin; M79.661 Pain in right lower leg
CPT/HCPCS: 36415; 80048; 85025; 85610; 85730; 93971; 99284; A9270

== ENCOUNTER 2025-08-15 13:54 | Outpatient (CLI) | payer MEDICARE, SELFPAY ==
--- NOTE | ~2025-08-15 | CT_ITS ---
EXAMINATION: CT soft tissue neck chest w DATE: 08/15/2025 14:41 INDICATION: Localized swelling, mass and lump, neck. TECHNIQUE: Computed tomography (CT) of the neck and chest was performed with 75 mL Omnipaque 350 intravenous contrast. Automated exposure control and iterative reconstruction technique were employed. The dose-length product was 555.58 mGy-cm. COMPARISON: None FINDINGS: CT NECK: Motion artifact is noted. There is a 2.5 x 2.2 cm mass in left neck involving the inferior left parotid gland. There are no pathologically enlarged lymph nodes. There is severe cervical spondylosis. CT CHEST: There is mild emphysema. There is diffuse septal thickening in the lungs with a lower lung predominance likely chronic interstitial lung disease. There is mild bronchiectasis in lingula. There is a 4 mm nodule in left upper lobe, likely benign. No pleural effusion. The heart size is normal. There are coronary artery calcifications. No pericardial effusion. There is a lytic lesion of left fourth rib with pathologic fracture. There is a mixed lytic and sclerotic lesion in T2 vertebral body. There is severe thoracic spondylosis. IMPRESSION: 1. 2.5 cm mass in left neck, likely in the left parotid gland. The differential diagnosis includes benign mixed tumor, Warthin tumor, primary malignancy, and dori metastatic disease. 2. 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 Ultrasound-guided core needle biopsy of the left fourth rib lesion is recommended. 3. Emphysema and chronic interstitial lung disease in a pattern of usual interstitial pneumonia (UIP) versus nonspecific interstitial pneumonia (NSIP). Reviewed, dictated and finalized at location E. IMPRESSION: 1. 2.5 cm mass in left neck, likely in the left parotid gland. The differential diagnosis includes benign mixed tumor, Warthin tumor, primary malignancy, and dori metastatic disease. 2. Bone lesions involving T2 vertebral body and left fourth rib, consistent wit h metastatic disease. Ultrasound-guided core needle biopsy of the left fourth r ib lesion is recommended. 3. Emphysema and chronic interstitial lung disease in a pattern of usual inters titial pneumonia (UIP) versus nonspecific interstitial pneumonia (NSIP).
[2025-08-15 14:36] LABS: Estimated Glomerular Filt Rate > 60
== END 2025-08-15 13:55 | disposition home or self-care (01) ==
PROVIDERS: PCP Family Medicine; Visit Provider Family Medicine
DX: M89.8X8 Other specified disorders of bone, other site (principal); R22.1 Localized swelling, mass and lump, neck
CPT/HCPCS: 70491; 71260; Q9967

== ENCOUNTER 2025-09-05 12:28 | Outpatient (CLI) | payer MEDICARE, SELFPAY ==
--- NOTE | ~2025-09-05 | US_ITS ---
EXAMINATION: US FNA w image guidance DATE: 09/05/2025 13:56 INDICATION: Left parotid lump TECHNIQUE: A time-out was performed to verify the patient's name, date of , and procedure to be performed. The procedure and its benefits and risks were discussed with the patient. Risks specifically discussed included bleeding and infection. The patient understood the risks and agreed to proceed. The neck was prepped and draped in the usual sterile manner. 3 mL 1% lidocaine was used for local anesthesia. 6 passes were made with a 25G needle into the very small solid component of the lesion. A second pass with a 21G needle was made with aspiration fluid in the cystic component of the lesion. Appropriate needle location was documented with continuous sonographic guidance. A sterile bandage was applied. There were no immediate complications. FINDINGS: Grayscale ultrasound images demonstrate biopsy needles advanced into the small hypoechoic solid component at the periphery of a 2.7 x 2.0 cm predominantly cystic lesion in the left parotid gland. Aspiration yielded approximate 5 mm of opaque meneses-colored fluid. IMPRESSION: 1. Successful ultrasound-guided fine needle aspiration of the small solid component of a predominantly cystic 2.7 x 2.0 cm left parotid lesion. 2. Aspiration of 5 mm of opaque cream-colored fluid from the cystic component of the lesion. Reviewed, dictated and finalized at location A. IMPRESSION: 1. Successful ultrasound-guided fine needle aspiration of the small solid comp onent of a predominantly cystic 2.7 x 2.0 cm left parotid lesion. 2. Aspiration of 5 mm of opaque cream-colored fluid from the cystic component o f the lesion.
--- OUTSIDE RECORDS SUMMARY | 2025-09-05 13:45 | XMS_ITS | Clinical Summary ---
Author Organization [address] lt Address [address] [place] [address] Care Team Providers Care Lumber Planer Name Role Phone Cristian Braden MD Primary Care Provider [phone] Allergies Active Allergy Reactions Criticality Noted Date Comments Penicillins Swelling Medium 12/24/2020 Medications aspirin 81 mg enteric coated tablet Take 1 tablet (81 mg total) by mouth daily Active mupirocin (BACTROBAN) 2 % ointment APPLY TOPICALLY TO RIGHT EAR TWICE DAILY FOR 2 WEEKS 1 Active loratadine (CLARITIN) 10 mg tablet Take 1 tablet (10 mg total) by mouth daily Active sildenafiL (VIAGRA) 100 mg tablet Take 1 tablet (100 mg total) by mouth daily as needed for erectile dysfunction Active fluticasone propionate (FLONASE) 50 mcg/actuation nasal spray Administer 1 spray into each nostril daily Active hydrocortisone 1 % cream Apply topically as needed Active clindamycin (CLEOCIN) 300 mg capsule TAKE 1 CAPSULE BY MOUTH EVERY 6 HOURS FOR 10 DAYS 3 Active triamcinolone (KENALOG) 0.1 % cream Apply 0.1 g topically 2 (two) times a day 3 Active magnesium oxide (MAG-OX) 250 mg (150.8 mg elemental) tabletIndicatio ns:hypomagnesem ia 1 tablet (250 mg total) daily Active atorvastatin (LIPITOR) 80 mg tablet TAKE 1 TABLET(80 MG) BY MOUTH DAILY 90 tablet 1 5 Active lisinopriL (PRINIVIL,ZESTR IL) 10 mg tablet TAKE 1 TABLET(10 MG) BY MOUTH DAILY 90 tablet 1 Active Active Problems Problem Noted Date Diagnosed Date History of coronary artery stent placement 02/20 Surgical History Surgery Date Site/Laterality Comments CORONARY ANGIOPLASTY 12/15/2020 Medical History Medical History Date Comments Coronary artery disease Hyperlipidemia STEMI involving right coronary artery (HCC) 05/2021 Social History Tobacco Use Types Packs/Day Years Used Date Smoking Tobacco: Former Smokeless Tobacco: Never Tobacco Cessation:Counseling Given: Not Answered Alcohol Use Standard Drinks/Week Comments Not Currently 0 (1 standard drink = 0.6 oz pur e alcohol) Sex and Gender Information Value Date Recorded Sex Assigned at Not on file Legal Sex Male 10:53 AM CDT Gender Identity Not on file Sexual Orientation Not on file Obstetrics History Last Filed Vital Signs Vital Sign Reading Time Taken Comments Blood Pressure 112/58 03/22/2025 1:29 PM CDT Pulse 94 03/22/2025 1:29 PM CDT Temperature - - Respiratory Rate - - Oxygen Saturation 95% 03/22/2025 1:29 PM CDT Inhaled Oxygen Concentration - - Weight 68 kg (150 lb) 03/22/2025 1:29 PM CDT Height 172.7 cm (5' 8) 03/22/2025 1:29 PM CDT Body Mass Index 22.81 03/22/2025 1:29 PM CDT Plan of Treatment Health Maintenance Due Date Last Done Comments Depression Screening 1940 Fall Risk Assessment 1940 Hepatitis B Screening 1958 Well Visit 65+ 2006 Covid-19 Vaccine (2 - 2024-2 6 season) 2025 09/05/2021 Influenza Vaccine (#1) 2025 8, 08/11/2017, 08/29/2016, Additional history exists DTaP/Tdap/Td Vaccine (2 - Td or Tdap) 05/18/2029 05/18/2019 Zoster Vaccine Completed 07/18/2019, 05/08, 08/30/2012 Pneumococcal vaccine 65+ Completed 05/22/2020, 06/2015 Insurance T MEDICARE [facility] MEDICARE Care Teams Lumber Planer Relationship Specialty Start Date End Date Cristian Braden MD [address] [id number] PCP - General Family Medicine 12/24/20
--- OUTSIDE RECORDS SUMMARY | 2025-09-05 13:45 | XMS_ITS | Clinical Summary ---
Author Organization [facility] Address [address] [place] [address] Care Team Providers Care Rn Or Lvn Name Role Phone Unavailable Primary Care Provider Unavailabl e Immunizations Immunization Administration Dates Next Due Covid-19, Mrna, Lnp-s, Pf, 30 Mcg/0.3 Ml Dose (P emma) 09/05/2021 Social History Tobacco Use Types Packs/Day Years Used Date Smoking Tobacco: Never Assessed Sex and Gender Information Value Date Recorded Sex Assigned at Not on file Legal Sex Male 10:05 PM CDT Gender Identity Not on file Sexual Orientation Not on file Plan of Treatment Health Maintenance Due Date Last Done Comments Hepatitis C Virus (HCV) Screening 1940 Respiratory Syncytial Virus (RSV) Immunization (Adult) (1 - 1-dose 75+ series) 2016 Influenza Immunization (#1) 07/09/202507/11, 08/30/2018, 08/11/2017, Additional history exists SARS-COV-2 Immunization ( season) 2025 09/05/2021, 01/24/2021, 01/02/2021 DTaP/Tdap/Td Immunization Discontinued 05/18/2019 TdaP Immunization Completed 05/18/2019 Zoster Immunization Completed 07/18/2019, 05/18/2019, 08/30/2012 Pneumococcal Immunization (50+ years) Completed 05/22/2020, 08/15/2015 Hepatitis B Immunization Aged Out No longer eligible based on patient's age to complete this topic Human Papillomavirus (HPV) Immunization Aged Out No longer eligible based on patient's age to complete this topic Meningococcal Immunization (ACWY) Aged Out No longer eligible based on patient's age to complete this topic Rotavirus Immunization Aged Out No lo nger eligible based on patient's age to complete this topic
--- NOTE | 2025-09-05 13:53 | CY_PTH ---
PATIENT: Rudy Salas LOC: [facility] U#:[id number] AGE/SX: 84/M ROOM: RE09/05/[address]: Jose Alejandro Saenz MD : 1940 BED: DIS: 09/05/2025 SPEC #: [id number] RECD: 09/05/25 13:55 STATUS: CB REQ #: [id number] ADI: 09/05/25 13:[address]: Jose Alejandro Saenz DEPT: [facility] Cytology RECD BY: Mark Ramirez ENTERED: 09/05/25 13:56 SP TYPE: Cytology OTHR DR: Cristian Braden MD Tissues: A - FNA Non Thyroid B - Cytology Fluid Procedures: Hematoxylin and Eosin Stain Cell Block Fna Additional Pass Cytopathology Cytospin
== END 2025-09-05 12:29 | disposition home or self-care (01) ==
PROVIDERS: PCP Family Medicine; Visit Provider Otolaryngology
DX: K11.20 Sialoadenitis, unspecified (principal); K11.6 Mucocele of salivary gland; R22.1 Localized swelling, mass and lump, neck
CPT/HCPCS: 10005; 87070; 87075; 87205; 88108; 88177; 88305